=== PATIENT | female | born 1975 | race Caucasian/White ===

== ENCOUNTER 2023-10-18 14:45 | Outpatient (AMB) | payer OTHER, SELFPAY ==
--- NOTE | 2023-10-18 14:48 | A.OFFVIS_ITS ---
Vital Signs 10/18/23 14:51 Height 5 ft Weight 81 lb 2.082 oz BMI 15.8 BP 102/62 Blood Pressure Location Rt brachial Position Sitting Pulse 104 H Pulse Source Pulse Oximeter Pulse Oximetry (%) 96 Oxygen Delivery Method Room Air Intake Visit Reasons: +MARTINEZ/SLE Intake Note: New patient, externally referred by [facility], Larisa Wong NP. Referred for +MARTINEZ/SLE Accompanied by: Self / Same As Patient Allergies No Known Allergies Allergy (Verified 10/18/23 14:53) HPI Comments Details: Ms. Rabago 48-year-old female, hair on referral by PCP, presents for evaluation of positive MARTINEZ 1:320. The patient describes that she has been experiencing many symptoms and has been worked up for the last year to determine the underlying reasons for her symptoms. Upon inquiry the patient endorses: --unexplained weight loss, low potassium. 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 --no Acid reflux --no joint pain she finds bothersome and no swelling --no rashes --no mouth sores. --no gout --episodes of N/V/D PFSH Medical History (Updated 11/15/23 @ 00:39 by Kristy Lopez [facility]) Cachectic Unexplained weight loss MARTINEZ positive Hx of nephrolithotomy with removal of calculi Kidney stone Family History (Updated 10/18/23 @ 14:54 by ADALI Ceron) Mother Atrial fibrillation Diabetes HTN (hypertension) High cholesterol Father HTN (hypertension) COPD (chronic obstructive pulmonary disease) Anxiety Sister High cholesterol Social History Alcohol intake: current Alcohol intake frequency: holidays/special occasions only Alcohol type: beer and hard liquor Patient Tobacco Use Status: Never used Tobacco Female Reproductive History Menstrual Total pregnancies: 3 Ab induced: 1 Review of Systems Const All systems reviewed & are unremarkable except as noted in HPI and below Physical Exam Vital Signs: Last Vital Signs Pulse 104 H 10/18/23 14:51 BP 102/62 10/18/23 14:51 Pulse Ox 96 10/18/23 14:51 Oxygen Delivery Method Room Air 10/18/23 14:51 BMI result Body Mass Index 15.8 APPEARANCE: Patient in no acute distress EYES no redness, normal EARS:? External ear normal. NOSE/SINUS:? Airflow through both nares, no nasal discharge, no bleeding THROAT:? Oral mucosa moist, no ulcerations NECK:? No thyromegaly or masses, no adenopathy, trachea midline. HEART:? Regular rhythm, S1-S2 heard, no murmurs, rubs or gallops. LUNG:? Clear to percussion and auscultation EXTREMITIES:? No edema, no calf tenderness, normal peripheral pulses. NEURO:? Oriented and alert x3.? No focal weakness.? Reflexes symmetric.? Gait normal. SKIN:? There are no skin lesions evident. No objective signs of Raynaud's phenomenon. JOINT EXAM: Cervical Spine:.? Full range of motion without pain; no tenderness. Thoracic Spine:.? No scoliosis.? No tenderness on palpation. Lumbar Spine:.? Alignment normal.? Full range of motion without pain, no tenderness. Chest Wall:.? No tenderness, swelling, increased warmth or erythema. Hands:.? Normal pain-free range of motion without tenderness, swelling, increased warmth or erythema. Able to make a full fist and has a good electric fork operator strength. Wrists:.? Normal pain-free range of motion without tenderness, swelling, increased warmth or erythema. Elbows:. Normal pain-free range of motion without tenderness, swelling, increased warmth or erythema. Shoulders:.?? Full range of motion without pain. No tenderness, weakness, swelling, increased warmth or erythema. Hips:.? Full range of motion without pain. Hip bursa:.? No tenderness. Knees:.?? Normal pain-free range of motion without tenderness, swelling, increased warmth or erythema.? There is no effusion or crepitation Ankles:.? Normal pain-free range of motion without tenderness, swelling, increased warmth or erythema. Feet:.? Normal pain-free range of motion without tenderness, swelling, increased warmth or erythema. Tender points:? No tenderness to digital palpation at the occiput, trapezius, second rib, lateral epicondyle, knees, greater trochanter and gluteal area bilaterally. ? Assessment & Plan Assessment & Plan (1) MARTINEZ positive: Code(s): R76.8 - Other specified abnormal immunological findings in serum Category: Medical (2) Unexplained weight loss: Code(s): R63.4 - Abnormal weight loss Category: Medical (3) Cachectic: Code(s): R64 - Cachexia Category: Medical Plan #+MARTINEZ 1:320: The patient presents for evaluation of her positive MARTINEZ, lab fin dings while being worked up in the context of her symptoms as outlined in the HPI. On PE, she did not have clinical findings that support an autoimmune or inflammatory process. Nonetheless given her unexplained weight loss and cachectic appearance, I will order a thorough rheumatology panel to assess further. She has a nontender lymphadenopathy to her neck which was biopsied and found to be benign. The PCP visit notes also outlines findings for thrombocytosis and patient is being worked up and has referral to Hematology and Oncology for further evaluation. I spent 30 minutes reviewing history, evaluating patient and documenting. Follow-up in 1 month Orders: Orders ANCA Vasculitides 10/18/23 R76.8 - Other specified abnormal immunological findings in serum Anti DNA DS Antibody 10/18/23 R76.8 - Other specified abnormal immunological findings in serum Anti Extractable Nuclear Ag 10/18/23 R76.8 - Other specified abnormal immunological findings in serum Angiotensin Converting Enzyme 10/18/23 R76.8 - Other specified abnormal immunological findings in serum Complement C3 10/18/23 R76.8 - Other specified abnormal immunological findings in serum Complement C4 10/18/23 R76.8 - Other specified abnormal immunological findings in serum Erythrocyte Sedimentation Rate 10/18/23 R76.8 - Other specified abnormal immuno logical findings in serum Immunoglobulins,IgG IgA IgM 10/18/23 R76.8 - Other specified abnormal immunological findings in serum Scleroderma 70 Antibody 10/18/23 R76.8 - Other specified abnormal immunological findings in serum Uric Acid 10/18/23 R76.8 - Other specified abnormal immunological findings in serum Mitochondrial Antibody 10/18/23 R76.8 - Other specified abnormal immunological findings in serum Smooth Muscle Antibody 10/18/23 R76.8 - Other specified abnormal immunological findings in serum MARTINEZ Reflex Titer and Pattern 10/18/23 R76.8 - Other specified abnormal immunological findings in serum Anti-Centromere B Antibodies 10/18/23 R76.8 - Other specified abnormal immunological findings in serum C Reactive Protein 10/18/23 R76.8 - Other specified abnormal immunological findings in serum Creatine Kinase Total 10/18/23 R76.8 - Other specified abnormal immunological findings in serum Immunofixation Pnl, Serum 10/18/23 R76.8 - Other specified abnormal immunological findings in serum Protein Electrophoresis, Serum 10/18/23 R76.8 - Other specified abnormal immunological findings in serum Sjogren's Antibodies 10/18/23 R76.8 - Other specified abnormal immunological findings in serum Thyroid Peroxidase Antibodies 10/18/23 R76.8 - Other specified abnormal immunological findings in serum Thyroglobulin Antibodies 10/18/23 R76.8 - Other specified abnormal immunological findings in serum Coding Level of Care Code New Pt Level 4 (01146) Diagnoses MARTINEZ positive R76.8 Unexplained weight loss R63.4 Cachectic R64
[2023-10-18 14:51] VITALS: BP 102/62; PULSE 104; O2SAT 96; BMI 15.8
== END 2023-10-18 15:30 | disposition home or self-care (01) ==
PROVIDERS: PCP Internal Medicine; Visit Provider Nurse Practitioner Family
DX: R76.8 Other specified abnormal immunological findings in serum (principal); R64 Cachexia
CPT/HCPCS: 99204

== ENCOUNTER 2023-10-18 14:45 | Outpatient (REF) | payer OTHER, SELFPAY ==
[2023-10-18 18:10] LABS: C Reactive Protein 9.02 mg/dL (< or = 0.50); Uric Acid 5.3 mg/dL (2.4-5.7)
[2023-10-18 18:11] LABS: Erythrocyte Sedimentation Rate 44 MM/HR (0-20)
[2023-10-21 17:23] LABS: Thyroglobulin Antibodies <1 IU/mL (< or = 1); Thyroid Peroxidase Antibodies 1 IU/mL (<9)
[2023-10-22 08:59] LABS: Anti-Centromere B Antibodies <1.0 NEG AI (<1.0 NEG)
[2023-10-22 11:38] LABS: Mitochondrial Antibodies NEGATIVE (NEGATIVE)
[2023-10-22 12:53] LABS: Anti Nuclear Antibody Screen POSITIVE (NEGATIVE)
[2023-10-22 13:49] LABS: Anti DNA DS Antibody <1 IU/mL; Antibody to SS-A Antigen <1.0 NEG AI (<1.0 NEG); Antibody to SS-B Antigen <1.0 NEG AI (<1.0 NEG); Myeloperoxidase Antibody <1.0 AI; Proteinase 3 PR3 Antibodies <1.0 AI; SM/Ribonucleoprotein Ab <1.0 NEG AI (<1.0 NEG); Scleroderma 70 Antibody <1.0 NEG AI (<1.0 NEG); Smith Protein <1.0 NEG AI (<1.0 NEG)
[2023-10-22 16:49] LABS: Prot Elec - Albumin 4.2 g/dL (3.8-4.8); Prot Elec - Alpha1 0.6 g/dL (0.2-0.3); Prot Elec - Beta 1 0.5 g/dL (0.4-0.6); Prot Elec - Beta 2 0.4 g/dL (0.2-0.5); Prot Elec - Gamma 0.7 g/dL (0.8-1.7); Prot Elec - Total Protein 7.4 g/dL (6.1-8.1)
[2023-10-22 20:54] LABS: Angiotensin Converting Enzyme 19.6 U/L (9-67)
[2023-10-23 11:59] LABS: Complement C3 151 mg/dL (83-193)
[2023-10-23 14:28] LABS: Smooth Muscle Antibody <20 U (<20)
[2023-10-23 23:28] LABS: IgA 367 mg/dL (47-310); IgG 923 mg/dL (600-1640); IgM 45 mg/dL (50-300)
== END 2023-10-18 14:46 | disposition home or self-care (01) ==
LOC: HO.LAB 14:45
PROVIDERS: PCP Internal Medicine; Visit Provider Nurse Practitioner Family
DX: R76.8 Other specified abnormal immunological findings in serum (principal); R63.4 Abnormal weight loss
CPT/HCPCS: 36415; 82164; 82550; 82784; 84165; 84550; 85652; 86015; 86021; 86038; 86039; 86140; 86160; 86225; 86235; 86334; 86376; 86381; 86800

== ENCOUNTER 2023-11-28 10:01 | Outpatient (AMB) | payer OTHER, SELFPAY ==
--- NOTE | 2023-11-28 10:03 | MHC.OFFVIS ---
Vital Signs 11/28/23 10:07 Height 5 ft Weight 83 lb 15.938 oz BMI 16.4 BP 124/60 Blood Pressure Location Rt brachial Position Sitting Pulse 78 Pulse Oximetry (%) 96 Intake Visit Reasons: +MARTINEZ/lvm Intake Note: Established patient, last seen 10/18/23, presents today for +MARTINEZ follow up and test results. Allergies No Known Allergies Allergy (Verified 11/28/23 10:07) HPI Comments Details: Ms. Rabago 48-year-old female, returns for follow-up of evaluation of positive MARTINEZ (1:320 on referral documents) to review results of diagnostics. Since last visit she has had an additional lithotripsy procedure. This is her 3rd and they finally got all kidney stones out per patient. --Did cologuard, waiting for results --aunt with breast cancer, uterine, then spread to liver, but no personal history --denies ETOH in excess --uncle of wali duct cancer, --bouts of diarrhea usually linked to coffee --ECHO 3 weeks ago Initial History - 10/18/2023 Ms. Rabago 48-year-old female, here on referral by PCP, presents for evaluation of positive MARTINEZ 1:320. The patient describes that she has been experiencing many symptoms and has been worked up for the last year to determine the underlying reasons for her symptoms. Upon inquiry the patient endorses: --unexplained weight loss, low potassium. 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 --no Acid reflux --no joint pain she finds bothersome and no swelling --no rashes --no mouth sores. --no gout --episodes of N/V/D PFSH Medical History (Updated 11/28/23 @ 10:27 by ALON Salas-) Abdominal pain Elevated C-reactive protein (CRP) Cachectic Unexplained weight loss MARTINEZ positive Kidney stone Surgical History (Updated 11/28/23 @ 10:11 by ADALI Ceron) History of surgery Family History (Updated 10/18/23 @ 14:54 by ADALI Ceron) Mother Atrial fibrillation Diabetes HTN (hypertension) High cholesterol Father HTN (hypertension) COPD (chronic obstructive pulmonary disease) Anxiety Sister High cholesterol Social History Alcohol intake: current Alcohol intake frequency: holidays/special occasions only Alcohol type: beer and hard liquor Patient Tobacco Use Status: Never used Tobacco Review of Systems Const All systems reviewed & are unremarkable except as noted in HPI and below Physical Exam Vital Signs: Last Vital Signs Pulse 78 11/28/23 10:07 BP 124/60 11/28/23 10:07 Pulse Ox 96 11/28/23 10:07 BMI result Body Mass Index 16.4 APPEARANCE: Patient in no acute distress EYES no redness, normal EARS:? External ear normal. NOSE/SINUS:? Airflow through both nares, no nasal discharge, no bleeding THROAT:? Oral mucosa moist, no ulcerations NECK:? No thyromegaly or masses, no adenopathy, trachea midline. HEART:? Regular rhythm, S1-S2 heard, no murmurs, rubs or gallops. LUNG:? Clear to percussion and auscultation EXTREMITIES:? No edema, no calf tenderness, normal peripheral pulses. NEURO:? Oriented and alert x3.? No focal weakness.? Reflexes symmetric.? Gait normal. SKIN:? There are no skin lesions evident. No objective signs of Raynaud's phenomenon. JOINT EXAM: Cervical Spine:.? Full range of motion without pain; no tenderness. Thoracic Spine:.? No scoliosis.? No tenderness on palpation. Lumbar Spine:.? Alignment normal.? Full range of motion without pain, no tenderness. Chest Wall:.? No tenderness, swelling, increased warmth or erythema. Hands:.? Normal pain-free range of motion without tenderness, swelling, increased warmth or erythema. Able to make a full fist and has a good supervisory examiner strength. Wrists:.? Normal pain-free range of motion without tenderness, swelling, increased warmth or erythema. Elbows:. Normal pain-free range of motion without tenderness, swelling, increased warmth or erythema. Shoulders:.?? Full range of motion without pain. No tenderness, weakness, swelling, increased warmth or erythema. Hips:.? Full range of motion without pain. Hip bursa:.? No tenderness. Knees:.?? Normal pain-free range of motion without tenderness, swelling, increased warmth or erythema.? There is no effusion or crepitation Ankles:.? Normal pain-free range of motion without tenderness, swelling, increased warmth or erythema. Feet:.? Normal pain-free range of motion without tenderness, swelling, increased warmth or erythema. Tender points:? No tenderness to digital palpation at the occiput, trapezius, second rib, lateral epicondyle, knees, greater trochanter and gluteal area bilaterally. ? Results Reviewed Results Reviewed: Laboratory Tests 10/18/23 11/28/23 15:55 10:47 ESR 44 H 29 H Uric Acid 5.3 Total Creatine Kinase 46 C-Reactive Protein 9.02 H 0.12 Angiotensin Convert Enz 19.6 IgG Total 923 IgA Total 367 H IgM 45 L MARTINEZ Titer 1:80 H Complement C3 151 Complement C4 34 Assessment & Plan Assessment & Plan (1) MARTINEZ positive: Code(s): R76.8 - Other specified abnormal immunological findings in serum Category: Medical (2) Unexplained weight loss: Code(s): R63.4 - Abnormal weight loss Category: Medical (3) Elevated C-reactive protein (CRP): Code(s): R79.82 - Elevated C-reactive protein (CRP) Category: Medical (4) Cachectic: Code(s): R64 - Cachexia Category: Medical Plan #+MARTINEZ 1:320: The patient presents for evaluation of her positive +MARTINEZ which is 1:80 on repeat labs. After review of history, PE, and diagnostics, I do not think the patient has a CTD or inflammatory arthritic process. On PE, she did not have clinical findings that support an autoimmune or inflammatory process. Nonetheless given her unexplained weight loss and cachectic appearance, and markedly elevated CRP we did a rheumatology panel to assess further. However, her labs were unremarkable and the ESR/CRP have since greatly improved to the point were the CRP is normalized (0.12 down from 9) and the ESR is 29 down from 44. It seem that most the acute inflammatory response relates to the issue with Kidney stones and now improved given the kidney stones are resolved #Cachectic/unexplained weight loss: We had ordered CT imaging while the patient is waiting to see GI for further workup She has a nontender lymphadenopathy to her neck which was biopsied and found to be benign. The PCP visit notes also outlines findings for thrombocytosis and patient is being worked up and has referral to Hematology and Oncology for further evaluation. She should continue to follow these. I spent 25 minutes reviewing chart, evaluating patient and documenting. Follow-up 2 months Orders: Orders Erythrocyte Sedimentation Rate 11/28/23 R79.82 - Elevated C-reactive protein (CRP), R63.4 - Abnormal weight loss CT abdomen pelvis wo IV con 11/28/23 R64 - Cachexia, R63.4 - Abnormal weight loss, R76.8 - Other specified abnormal immunological findings in serum, R79.82 - Elevated C-reactive protein (CRP), R10.9 - Unspecified abdominal pain C Reactive Protein 11/28/23 R79.82 - Elevated C-reactive protein (CRP), R63.4 - Abnormal weight loss CT abdomen pelvis w IV con 11/28/23 R10.9 - Unspecified abdominal pain, R79.82 - Elevated C-reactive protein (CRP), R64 - Cachexia, R63.4 - Abnormal weight loss, R76.8 - Other specified abnormal immunological findings in serum Coding Level of Care Code Est Pt Level 4 (38195) Complex EM visit Add On G2211 Diagnoses MARTINEZ positive R76.8 Unexplained weight loss R63.4 Elevated C-reactive protein (CRP) R79.82 Cachectic R64
[2023-11-28 10:07] VITALS: BP 124/60; PULSE 78; O2SAT 96; BMI 16.4
== END 2023-11-28 10:32 | disposition home or self-care (01) ==
LOC: HO.RHE 10:01
PROVIDERS: PCP Internal Medicine; Visit Provider Nurse Practitioner Family
DX: R76.8 Other specified abnormal immunological findings in serum (principal); R79.82 Elevated C-reactive protein (CRP); R64 Cachexia
CPT/HCPCS: 99213

== ENCOUNTER 2023-11-28 10:01 | Outpatient (REF) | payer OTHER, SELFPAY ==
[2023-11-28 11:33] LABS: C Reactive Protein 0.12 mg/dL (< or = 0.50)
[2023-11-28 11:35] LABS: Erythrocyte Sedimentation Rate 29 MM/HR (0-20)
== END 2023-11-28 10:02 | disposition home or self-care (01) ==
LOC: HO.LAB 10:01
PROVIDERS: PCP Internal Medicine; Visit Provider Nurse Practitioner Family
DX: R79.82 Elevated C-reactive protein (CRP) (principal); R63.4 Abnormal weight loss
CPT/HCPCS: 36415; 85652; 86140

== ENCOUNTER 2024-05-08 10:49 | Outpatient (AMB) | payer OTHER, SELFPAY ==
[2024-05-08 11:01] VITALS: BP 118/76; PULSE 87; O2SAT 100; BMI 20.3
--- NOTE | 2024-05-08 11:01 | A.OFFVIS_ITS ---
Vital Signs 05/08/24 11:01 Height 5 ft Weight 104 lb BMI 20.3 BP 118/76 Blood Pressure Location Lt brachial Position Sitting Pulse 87 Pulse Source Pulse Oximeter Pulse Oximetry (%) 100 Oxygen Delivery Method Room Air Intake Visit Reasons: +MARTINEZ/cm Intake Note: Patient presents today for follow up on +MARTINEZ. She was last seen in the office by Kristy on 11/28/23. Allergies No Known Allergies Allergy (Verified 05/08/24 11:02) HPI Comments Details: Patient is a 48-year-old female who returns for follow-up of positive MARTINEZ Interval History: Last seen 11/28/23 At that time no concern for an autoimmune disease. Since that visit, Found to have a staghorn calculus, which was subsequently removed. And feels better overall. Gaining weight. Appetite is better. Today doing overall better. Denies rashes, photosensitivity, alopecia, oral/nasal ulcers, sicca symptoms, lymphadenopathy, chest pain/shortness of breath, inflammatory type joint pain, foamy urine, lower extremity edema, muscle weakness, Raynaud's Also denies history of seizure, CVA, psychosis, history of kidney problems, history of cytopenias, history of VTE including PE or DVTs Rheumatologic History: Patient initially evaluated 09/2023 for evaluation of positive MARTINEZ. There was no clinical evidence of an autoimmune or inflammatory process however because of her unexplained weight loss and cachexia parents a full rheumatology panel was sent Current Rheumatology Medication(s): [facility] Medical History (Updated 05/08/24 @ 11:32 by Chloe Carroll MD) Abdominal pain Elevated C-reactive protein (CRP) Cachectic Unexplained weight loss MARTINEZ positive Kidney stone Surgical History (Updated 11/28/23 @ 10:11 by ADALI Ceron) History of surgery Family History (Updated 10/18/23 @ 14:54 by ADALI Ceron) Mother Atrial fibrillation Diabetes HTN (hypertension) High cholesterol Father HTN (hypertension) COPD (chronic obstructive pulmonary disease) Anxiety Sister High cholesterol Social History Alcohol intake: current Alcohol intake frequency: holidays/special occasions o nly Alcohol type: beer and hard liquor Patient Tobacco Use Status: Never used Tobacco Review of Systems Const Details: Review of Systems Constitutional: Denies fever, chills, weight loss ENT: Denies vision changes, eye pain or eye redness, dental caries, dry mouth GI: Denies nausea, vomiting, diarrhea, abdominal pain, change in BM Pulm: Denies SOB, ROYAL, hemoptysis, wheezing Cards: Denies chest pain, palpitations Skin: Denies Raynaud's, rash, nail changes, photosensitivity, HEALTHCARE NETWORK CONSULTANT: Denies headaches, weakness, paresthesias, recurrent falls MSK: as per HPI All other systems reviewed and are unremarkable except noted above Physical Exam Vital Signs: Last Vital Signs Pulse 87 05/08/24 11:01 BP 118/76 05/08/24 11:01 Pulse Ox 100 05/08/24 11:01 Oxygen Delivery Method Room Air 05/08/24 11:01 BMI result Body Mass Index 20.3 Physical Examination CONSTITUITIONAL Patient alert and cooperative. Well appearing and in no apparent painful distress HEENT Conjunctiva and sclera clear. ?Pupils equal round and reactive to light. ?Normal dentition. No oral or nasal ulcers noted. No evidence of discoid rash to the shawna of ears. 5cm submandibular mobile LN on the right CHEST/RESPIRATORY SYSTEM Normal respiratory effort and able to speak in complete sentences. ?Clear to auscultation bilaterally. ?No crackles, rales, rhonchi, wheezes heard. CARDIAC SYSTEM Regular rate and rhythm. ?S1 and S2 heard no murmurs. ?Radial pulses intact bilaterally MSK Hands: ?Good order caller strength bilaterally - 5/5. ?No deformities noted. ?No synovitis noted to the MCPs, PIPs or DIPs. ?No tenderness to palpation of these joints. Wrists: ?Full range of motion at the wrists without pain. ?No tenderness to palpation or synovitis noted to the wrists. Elbows: Full range of motion without pain. No tenderness, weakness, swelling, increased warmth or erythema. Shoulders: Full range of motion without pain. No tenderness, weakness, swelling, increased warmth or erythema. Knees: ?Full range of motion. ?No tenderness, swelling, increased warmth or erythema.?No effusion or crepitations Ankles: Full range of motion. ?No tenderness, swelling, increased warmth or erythema.? Feet: ?Negative squeeze test. ?No tenderness to palpation or swelling of the MTPs. SKIN Skin intact without rashes. Results Reviewed Results Reviewed: Laboratory Tests 10/18/23 11/28/23 15:55 10:47 Total Creatine Kinase 46 C-Reactive Protein 9.02 H 0.12 MARTINEZ Titer 1:80 H Proteinase 3 (PR3) Ab <1.0 Myeloperoxidase Ab <1.0 SS-A/Ro Antibody <1.0 NEG SS-B/La Antibody <1.0 NEG Sm (Dior) Antibody <1.0 NEG SM/INDUSTRIAL EDITOR IgG Antibody <1.0 NEG Scl-70 Scleroderma Ab <1.0 NEG Double Strand DNA Ab <1 Centromere B Antibody <1.0 NEG Anti-Mitochondrial Ab NEGATIVE Anti-Smooth Muscle Ab <20 Thyroglobulin Antibody <1 Thyroid Peroxidase Ab 1 Complement C3 151 Complement C4 34 Assessment & Plan Assessment & Plan (1) MARTINEZ positive: Code(s): R76.8 - Other specified abnormal immunological findings in serum Category: Medical Plan: #MARTINEZ positive MARTINEZ titre now 1:80 on recheck Still no signs of autoimmune disease Overall feeling better since kidney stone removal No further work up No need for routine follow up Plan I spent 20 minutes reviewing the record and labs, seeing the patient, discussing the treatment plan and documenting in the medical record ? Coding Level of Care Code Est Pt Level 3 (14664) Diagnoses MARTINEZ positive R76.8
== END 2024-05-08 11:29 | disposition home or self-care (01) ==
PROVIDERS: PCP Internal Medicine; Visit Provider Student in an Organized Health Care Education/Training Program
DX: R76.8 Other specified abnormal immunological findings in serum (principal)
CPT/HCPCS: 99213

== ENCOUNTER → 2024-05-08 10:49 | Outpatient (BNVA) | payer OTHER, SELFPAY | PROVIDERS: PCP Internal Medicine; Visit Provider Student in an Organized Health Care Education/Training Program | DX: R76.8 Other specified abnormal immunological findings in serum (principal) | CPT/HCPCS: 99212 ==